=== PATIENT | male | born 1965 | race Caucasian/White ===

== ENCOUNTER 2020-03-29 13:48 | Outpatient (REF) | payer MEDICARE, MEDICAID, SELFPAY ==
[2020-03-29 21:07] LABS: Anion Gap 9.1 mmol/L (3-11); BUN 17 mg/dL (7-18); CO2 30.9 mmol/L (21.0-32.0); CREATININE 0.81 mg/dL (0.70-1.30); Calcium 10.5 mg/dL (8.5-10.1); Chloride 100 mmol/L (98-107); Glucose 113 mg/dL (74-106); Potassium 4.4 mmol/L (3.5-5.1); Sodium 140 mmol/L (136-145)
[2020-03-29 21:57] LABS: COMMENT (LAB VIEW ONLY) 169.11 mg/dL; Microalb ug/mg Crea 14.6 ug/mg Cr
[2020-03-30 17:39] LABS: PSA, Screening 0.5 ng/mL (0.0-3.5)
== END 2020-03-29 14:08 ==
LOC: NCHCN 13:48
PROVIDERS: Visit Provider Nurse Practitioner Community Health
DX: E11.65 Type 2 diabetes mellitus with hyperglycemia (principal); Z80.42 Family history of malignant neoplasm of prostate; Z12.5 Encounter for screening for malignant neoplasm of prostate
CPT/HCPCS: 80048; 84153; 82043; 82570

== ENCOUNTER 2020-04-27 15:02 | Outpatient (REF) | payer MEDICARE, MEDICAID, SELFPAY ==
[2020-04-27 21:08] LABS: HCT 42.4 % (40.0-50.0); HGB 13.5 g/dL (13.5-17.5); MCHC 31.8 % (32.0-36.0); MCV 97.5 fL (80-95); MPV 11.6 fL (8.0-11.0); Platelet Count 182 10^3/uL (130-400); RBC 4.35 10^6/uL (4.36-5.78); RDW 13.8 % (11.8-14.1); RDW-SD 49.8 fL
[2020-04-27 21:40] LABS: TSH 3.67 uIU/mL (0.36-3.74)
== END 2020-04-27 15:22 ==
LOC: NCHCN 15:02
PROVIDERS: Visit Provider Nurse Practitioner Community Health
DX: E03.9 Hypothyroidism, unspecified (principal); E11.65 Type 2 diabetes mellitus with hyperglycemia; R51 Headache; E88.81 Metabolic syndrome and other insulin resistance; E66.01 Morbid (severe) obesity due to excess calories; K75.81 Nonalcoholic steatohepatitis (NASH); I10 Essential (primary) hypertension
CPT/HCPCS: 85027; 84443